=== PATIENT | female | born 1990 | race Caucasian/White ===

== ENCOUNTER 2023-08-15 15:20 | Outpatient (RCR) | payer OTHER, SELFPAY ==
--- NOTE | 2023-08-15 16:34 | PTOPEVAL1 ---
Assessment and note entered by Miguel Giron, PT, DPT Evaluation Information Assessment Status Evaluation Diagnosis R feldman splints Subjective Information Pt states about 2 years ago she was doing a lot of running and walking daily. She states she was getting a lot of R feldman pain to where it causes her to stop running as much. She sticks to more walking and yoga now, her pain is intermittent and not as intense. She states she would like to start running again. Reported Pain Level Pain Score 0: Self Report Assessment PT Clinical Summary Shonna presents to therapy today for her initial evaluation with a diagnosis of R feldman splints. Today she demonstrates limitations in active and passive dorsiflexion ROM marietta with increased tissue density with palpation. Her hip and knee ROM and strength were both WNL. She was issued an HEP and given running education. She plans to follow up in 6 weeks. Plan of Care Interventions Gait Training,Manual Therapy,Neuro Re-education, Patient/Caregiver Educati,Therapeutic Activities, Therapeutic Exercise PT Services Indicated Yes Treatment Frequency and follow up in 6 weeks Duration These treatments will address the objective and functional deficits as defined above. The patient will be advanced safely and appropriately in order for the patient to progress towards his/her prior level of function. Additional exercises will be introduced and as well as a comprehensive home exercise program upon discharge, if needed, ?to ensure carryover of functional gains achieved in the clinic. This treatment plan has been reviewed and agreement upon by the patient.
--- NOTE | 2023-11-11 15:23 | PTOPDC ---
Assessment and note entered by Deon Wharton, PT Evaluation Information Assessment Status Discharge - Pt Not Present Diagnosis R feldman splints Subjective Information Spoke with patient last week regarding therapy attendance. Stated that she would like to wait until 11/04/23 before deciding if she wanted to continue. Patient did not contact clinic at this time. Assessment PT Clinical Summary Patient to be discharged at this time due to lack of communication with clinic. Came for initial evaluation on 08/15/23 and has not returned or scheduled to return. Will be discharged at this time. Plan of Care PT Services Indicated Discharge due to lack of patient communication.
== END 2023-11-11 15:38 | disposition home or self-care (01) ==
LOC: ANHGOSHPT 15:20
PROVIDERS: PCP Family Medicine; Visit Provider Family Medicine
DX: S86.899D Other injury of other muscle(s) and tendon(s) at lower leg level, unspecified leg, subsequent encounter (principal)
CPT/HCPCS: 97110; 97161

== ENCOUNTER 2024-04-12 16:13 | Outpatient (RCR) | payer OTHER, SELFPAY ==
[2024-04-10 17:15] LABS: Beta HCG Quantitative 125.14 mIU/ML
[2024-04-12 17:47] LABS: Beta HCG Quantitative 329.74 mIU/ML
== END 2024-07-09 23:59 | disposition home or self-care (01) ==
LOC: ANHLAB 16:13
PROVIDERS: PCP Family Medicine; Visit Provider Obstetrics & Gynecology
DX: O36.0130 Maternal care for anti-D [Rh] antibodies, third trimester, not applicable or unspecified (principal); O20.0 Threatened abortion; Z3A.00 Weeks of gestation of pregnancy not specified
CPT/HCPCS: 36415; 84702; 85461; 86850; 86900; 86901

== ENCOUNTER 2024-12-18 07:51 | Inpatient (IN) | payer OTHER, SELFPAY ==
[2024-12-18] VITALS (18 sets, daily range): BP systolic 75–158; BP diastolic 58–90; PULSE 67–130; RESP 16–20; TEMP 36.2–37; O2SAT 97–99; BMI 26.3
--- OUTSIDE RECORDS SUMMARY | 2024-12-18 08:13 | XMS_ITS | Data Portability ---
Author Organization [facility] Address [address] [place] [address] Care Team Providers Care Project Technician Name Role Phone ARSLAN GRIFFITH Primary Care Provider Assessment Encounter Date Assessment Date Assessment LastModified by Organization Details LastModified Time 05/17/2024 05/17/2024 Patient is ___weeks . Discussed plan. Not available 05/17/2024 12:50:43 Plan of Treatment Reminders Order Date Submit Date Provider Last Modified By Organization Details Last Modified Time Details Appointments None recorded. Lab None recorded. Referral None recorded. Procedures None recorded. Surgeries None recorded. Imaging US, obstetric, transvagina l 2023 024 [address], [address], [place], [address], 20:16:33 US, obstetric, transvagina l 2023 0[address], [address], [place], [address], 21:15:15 Medication Orders progesteron e micronized 200 mg capsule 2023 024 IR[facility], [facility] [place], [address], 12:56:49 Patient TargetsNo targets recorded. Patient InstructionsNo instructions recorded. Reason for Referral None Reported. Results Created Date Observation Date Name Description Value Unit Range Abnormal Flag Note LastModifiedBy Organization Detail LastModifiedTime 03/15/20 24 03/15/2024 DHEA SULFA TE DHEA-sulfate 250 ug/dL Femal e Range s Age(y ) Range (ug/d L) 10-15 34-28 0 15-20 65-36 8 20-25 148-4 07 25-35 99-34 0 35-45 61-33 7 45-55 35-25 6 55-65 19-20 5 65-75 9-246 > 75 12-15 4 Not Available [facility] (Lab) [address] [facility], [place], [address], 03/21/2024 14:48:33 03/15/20 24 03/15/2024 PROGE STERO NE progesterone 0.31 NG/mL This assay was perfo rmed using [employer] ratio n reage nts and test kits. Value s obtai deniz with other assay metho ds or kits canno t be used inter simms eay . Femal e Proge stero ne Range s: Folli cular phase 0.06- 0.89 ng/mL Ovula tion phase 0.12- 12.00 ng/mL Lutea l phase 1.83- 23.90 ng/mL Postm enopa usal <0.05 -0.13 ng/mL Healt hy Pregn ant Women 1st Trime ster 11.0- 44.30 2nd Trime ster 25.40 -83.3 0 3rd Trime ster 58.70 -214. 00 Not Available [facility] (Lab) [address] [facility], [place], [address], 03/21/2024 14:48:34 03/15/20 24 03/15/2024 PROLA CTIN prolactin, total 6.90 NG/mL 4.79-2 3.30 This assay was perfo rmed using [employer] reage nts and test kits. Value s obtai deniz with other assay metho ds or kits canno t be used inter simms eay . Not Available [facility] (Lab) [address] [facility], [place], [address], 03/21/2024 14:48:34 03/15/20 24 03/15/2024 FSH, LH, ESTRA DIOL estradiol 46.3 pg/mL This assay was perfo rmed using [employer] reage nts and test kits. Value s obtai deniz with other assay metho ds or kits canno t be used [facility] . Femal e Estra diol Range s: Folli cular phase 12.4- 233 pg/mL Ovula tion phase 41.0- 398 pg/mL Lutea l phase 22.3- 341 pg/mL Postm enopa usal <5-13 8 pg/mL Healt hy Pregn ant Women 1st Trime ster 154-3 243 pg/mL 2nd Trime ster 1561- 26593 pg/mL 3rd Trime ster 8525- >3000 0 pg/mL Not Available [facility] (Lab) [address] [facility], [place], [address], 03/21/2024 14:48:34 03/15/20 24 03/15/2024 FSH, LH, ESTRA DIOL FSH 5.9 mIU/m L This assay was perfo rmed using [employer] reage nts and test kits. Value s obtai deniz with other assay metho ds or kits canno t be used inter [facility] . Femal es Folli cular : 3.5-1 2.5 mIU/m L Ovula tion: 4.7-2 1.5 mIU/m L Lutea l: 1.7-7 .7 mIU/m L Postm enopa use: 25.8- 134.8 mIU/m L Not Available [facility] (Lab) [address] [facility], [place], [address], 03/21/2024 14:48:34 03/15/20 24 03/15/2024 FSH, LH, ESTRA DIOL LH 9.8 mIU/m L This assay was perfo rmed using [employer] reage nts and test kits. Value s obtai deniz with other assay metho ds or kits canno t be used inter [facility] . Femal es Mid-F ollic ular: 2.4-1 2.6 mIU/m L Mid-C ycle: 14.0- 95.6 mIU/m L Mid-L uteal : 1.0-1 1.4 mIU/m L Postm enopa use: 7.7-5 8.5 mIU/m L Not Available [facility] (Lab) [address] [facility], [place], [address], 03/21/2024 14:48:34 03/15/20 24 03/15/2024 TSH, REFLE X FREE T4 TSH 1.63 uIU/m L 0.30-5 .33 Not Available [facility] (Lab) [address] [facility], [place], [address], 03/21/2024 14:48:34 03/15/20 24 03/15/2024 HUMAN SEX HORMO NE MARII NG GLOBU JACKLYN sex hormone binding globulin 56.1 nmole s/L 18.2-1 35.5 Not Available [facility] (Lab) [address] [facility], [place], [address], 03/21/2024 14:48:35 03/15/20 24 03/15/2024 TESTO STERO NE, FREE( DIALY SIS) AND TOTAL (LC/M S/MS) testosterone , total 25 NG/dL 2-45 For addit ional infor elba rodríguez e refer to http: //[facility] soto.que stdia gnost ics.c om/fa q/ Total Testo stero neLCM SMSFA Q165 (This link is being provi ded for infor peter nal/ educa corrina l purpo ses only. ) This test was devel opnadia and its samantha tical perfo rmanc e jono cteri stics have been deter mined by [facility] DARION [facility]. It has not been clear ed or appro gi by the U.S. Food and Drug Admin istra tion. This assay has been valid ated pursu ant to the CLIA regul ation s and is used for clini sin purpo ses. Not Available [facility] (Lab) [address] [facility], [place], [address], 03/21/2024 14:48:35 03/15/20 24 03/15/2024 TESTO STERO NE, FREE( DIALY SIS) AND TOTAL (LC/M S/MS) testosterone , free 2.7 pg/mL 0.1-6. 4 This test was devel oped and its samantha tical perfo rmanc e jono cteri stics have been deter mined by [facility] [place]. It has not been clear ed or appro gi by the U.S. Food and Drug Admin istra tion. This assay has been valid ated pursu ant to the CLIA regul ation s and is used for clini sin purpo ses. Perfo rming Organ izati on Infor matgordo n: Site ID: AMD Name: [facility] Addre ss: [id number] [facility] [employer] [place], [place] Direc tor: Armand Zapata MD PhD Not Available [facility] (Lab) [address] [facility], [place], [address], 03/21/2024 14:48:35 03/15/20 24 03/15/2024 IMAGE GUIDE D PAP AND HPV REGAR DLESS image guided Pap, HPV regardless of Pap result SEE RESULT S BELOW CASE REPOR T: Cytol ogy Gynec ologi sin Repor t Case: [id number] Autho dionna g Provi demetrius: Jeevan Koenig MD Colle cted: 03/15 1710 Order ing Locat ion: [place] Patho log[facility] Recei gi: 03/16 0924 First Scree n: Nojayjay ayon, Yomi ed, CT Rescr een: Praveena Padilla ret, CT Speci men: Scree bria Pap - Image d, Cervi x STATE MENT OF ADEQU ACY: Satis facto ry for evalu ation Trans forma tion zone compo nent prese nt ----- ----- ----- ----- ----- ----- ----- ----- ----- ----- ----- ----- ----- ----- ----- ----- ----- ---- FINAL DIAGN OSIS: Negat emir for Intra epith elial Lesgordo soto or Paramjit cummins (NIL) . Elect carrie barraza d by Praveena Padilla ret, CT on 03/22 at 3:42 PM ----- ----- ----- ----- ----- ----- ----- ----- ----- ----- ----- ----- ----- ----- ----- ----- ----- ---- HPV RESUL TS: HPV mRNA E6/E7 : No HPV mRNA Detec sean NOTE: This high risk HPV mRNA assay detec ts fourt een high- risk HPV types (16, 18, 31, 33, 35, 39, 45, 51, 52, 56, 58, 59, 66, 68) witho ut diffe renti ation . COMME NT: This speci men was revie wed by a Cytot echno logis t and/o r Patho logis t (as indic ated in this repor t) after evalu ation using the Thinp rep Imagi ng Syste m. CLINI SIN INFOR MATIO N: Menst rual Statu s: LMP (if appli cable ): Clini sin Histo ry/Pr eviou s Pap: Type of Neopl luis m (if appli cable ): Signi xiao t Clini sin Findi ngs: Other Histo ry: Hormo jessica (if appli cable ): PAP EDUCA CORRINA L NOTE: The Pap Test is a scree bria test with an inher ent false negat emir rate. Liqui d-bas ed sampl ing may decre ase, but will not elimi surinder, false negat emir resul ts. A negat emir resul t does not precl ude the prese nce and/o r devel opmen t of disea se, since the prese nce of abnor mal cells in the sampl e depen ds on the locat ion of the lesio n and sampl ing techn ique. Sanjay nued regul ar scree bria is the best metho d of cance r preve ntion . If repor sean cytol ogic findi ng do not corre late with physi sin and/o r histo rical findi ngs, furth er inves tigat ion is recom kevin d, as clini yasmine warra nted. Not Available [facility] (Lab) [address], [place], [address], 03/22/2024 16:47:17 03/23/20 24 03/23/2024 US, pelvi s No observ ation record ed. [facility] [address], [place], [address], 03/23/2024 17:37:42 03/23/20 24 03/23/2024 US, trans vagin al No observ ation record ed. [facility] [address], [place], [address], 03/23/2024 17:37:53 03/23/20 24 03/23/2024 US, pelvi s No observ ation record ed. [email or web address] [address], [place], [address], 03/25/2024 20:08:35 04/20/20 24 04/20/2024 US, obste tric, trans vagin al No observ ation record ed. [facility] [address], [place], [address], 04/20/2024 17:03:23 04/20/20 24 04/20/2024 US, obste tric, trans vagin al No observ ation record ed. IRVIN [address], [place], [address], 05/07/2024 04:12:14 04/30/20 24 05/01/2024 US, obste tric, trans vagin al No observ ation record ed. [email or web address] [place] [address], [place], [address], 05/01/2024 13:01:53 04/30/20 24 04/30/2024 US, obste tric, follo w-up No observ ation record ed. [email or web address] [address], [place], [address], 05/03/2024 15:32:34 05/17/20 24 05/17/2024 US, obste tric, 1st trime ster No observ ation record ed. [email or web address] [address], [place], [address], 05/17/2024 20:27:45 Result Notes None recorded. Procedures Surgical History Date Name Laterality Status Provider Name and Address Organization Details Recorded Time 03/15/2024 Date of [facility] 04/05/2024 14:34:06 Imaging Results None recorded. Procedure Notes None recorded. Medical Equipment None Reported. Allergies No known drug allergies Medications Name Sig Start Date Stop Date Status Note LastModified by Organization Details LastModified Time progesterone micronized 200 mg capsule Take 1 capsule every day by oral route for 12 days. 05/17 completed Not Available Not Available Not Available active Not Available Not Avai lable Not Available Vitals Date Recorded Body height Body mass index (BMI) Body weight Systolic And Diastolic Provider Name and Address Organization Details Last Updated DateTime 04/05/2024 167.64 cm 22.4 kg/m2 67623.34 g 103/70 mm[Hg] Earline [facility] 04/05/2024 14:39:19 Date Recorded Body height Body mass index (BMI) Body weight Systolic And Diastolic Provider Name and Address Organization Details Last Updated DateTime 05/17/2024 167.64 cm 23.4 kg/m2 74585.89 g 104/66 mm[Hg] Earline Rodríguez [facility] 05/17/2024 12:55:58 Social History Question Answer Notes LastModified by [employer] Details LastModified Time Tobacco Smoking Status Never Smoker Earline Rodríguez null, [facility] 03/15/2024 17:30:18 In The 14 Days Before Symptom Onset, Have You Had Close Contact With A Laboratory-confirm ed COVID-19 While That Case Was Ill? No Information n ot available 03/15/2024 In The 14 Days Before Symptom Onset, Have You Had Close Contact With A Person Who Is Under Investigation For COVID-19 While That Person Was Ill? No Information not available 03/15/2024 Have You Been To An Area Known To Be High Risk For COVID-19? No Information not available 03/15/2024 Sex: Unknown Functional Status Question Answer Note LastModified by [employer] Details LastModified Time Do you use any illicit or recreational drugs? No Information not available 03/15/2024 What is your level of alcohol consumption? Occasional Information not available 03/15/2024 Mental Status None recorded. Family History Relationship Description Onset Age of this Age Resolved Age Notes LastModified by Organization Details LastModified Time Maternal Grandmother Malignant tumor of breast Not available 2023 17:29:14 Paternal Grandfather Diabetes mellitus Not available 2023 17:29:37 Paternal Grandfather Hypertensive disorder Not available 2023 17:29:52 Medical History Condition Response Allergies (Food, seasonal, environmental ) N Other N Blood Transfusion N Drug/Latex Allergies/Reactions N Breast Cancer N Dermatologic Disorders N Lung Disease N Defects or Inherited Disease N Breast Problem N Gestational Diabetes N Hematologic disorders N Anesthesia Complications N History of STI N Deep Vein Thrombosis N Polycystic ovary syndrome N Anxiety Disorder N Autoimmune disease N Arthritis N Infertility N Polyps N Acid Reflux (GERD) N History of abnormal pap N Cancer N Stroke N Varicosities N Neurologic/Epilepsy N Endometriosis N High Cholesterol N Headaches N Fibromyalgia N Kidney Disease N Heart Problems N Kidney or Bladder Problems N Thyroid Problems N GI Problems N Eating Disorder N Anemia N Art (IVF or FET) N Psychiatric Illness N Ovarian Cancer N Diabetes N Pulmonary (TB, Asthma) N Hepatitis/Liver Disease N No Past Medical History N Eczema N Urinary Tract Infection N Abuse/Domestic Violence N Asthma N Trauma/Violence N Depression/ depression N Heart Disease N Pre-Eclampsia N Hypertension N Osteoporosis N Thrombophilias N Gynecological History Statement/Question Response Flow Moderate Was last menstrual period normal N STIs/STDs N Duration of Flow (days) 5 Current Control Method Are cycles usually normal Y Sexually Active? Y Menses Monthly N Age of first menstrual cycle 15 Date of Last Pap Smear 03/15/2024 Sexual Problems? N LMP Unknown Obstetrics History GPAL:G 1 P 0 0 0 1 Type Value Living 1 Total 1 Past Encounters Encounter ID Performer Location Encounter Start Date Encounter Closed Date Diagnosis/Indication Diagnosis SNOMED-CT Code Diagnosis ICD10 Code Diagnosis Note [id number] Chung Koenig MD [place] [address] [address] 03/15/2024 17:04:19 03/15/2024 17:55:44 Gynecologic examination 45015240 Z01.419 Annual gynecologi sin exam performed. Patient will come back in a year unless there are new symptoms. Suggest Calcium with Vitamin D if not eating in diet. Patient advised to get annual flu shot. Recommend yearly physicals and preform monthly breast exams. Genetic testing is available for patients with family history of cancer. Engage in safe sexual practices, use condoms. Encouraged to have daily exercise. Avoid tobacco and illicit drugs, moderation of alcohol. If BMI greater than 25 dietary consult advised. If you have any questions please call or email. Pap smear- today laboratory evaluation - done Amenorrhea [id number] N91. 2 [id number] Chung Koenig MD [place] [address] [address] 03/23/2024 16:29:21 03/26/2024 10:17:49 Amenorrhea 30857444 N91.2 [id number] Chung Koenig MD [place] [address] [address] 04/05/2024 14:27:15 04/08/2024 23:59:33 Amenorrhea [id number] N91.2 this patient is a 33-year-ol d female who presents for amenorrhea . She has had about 4 months of amenorrhea . We performed a laboratory evaluation . It appears to be normal. Her estrogen is somewhat low. Could this possibly be a hypothalam ic hypoestrog enism. ? FSH and LH are low/normal . we discussed the findings. Her testostero ne was normal. She has little stigmata of polycystic ovarian syndrome. The pelvic ultrasound is normal. We agreed to progestero ne withdrawal bleed to determine the adequacy of her estrogen. Patient is interested in . [facility] . We also discussed moving forward with inducing ovulation in our office. Ultimately agreed to to progestero ne withdrawal bleeds and to meet after that. Second 1 is likely more important. She does have little bit Mr. The endometriu m. She will likely have 1 initially. We will she have enough estrogen to have a 2nd progestero ne withdrawal bleed. ? I spent over 30 minutes on her care in total. [id number] Chung Koenig MD [place] [address] [address] 04/20/2024 13:24:25 04/20/2024 14:04:06 Threatened miscarriage [id number] O20.0 Z36.87 [id number] Chung Koenig MD [place] [address],[place] [address] 04/30/2024 13:54:28 04/30/2024 14:44:18 Uncertain viability of [id number] O36.80X0 O20.0 Z3A.01 [id number] Chung Koenig MD [place] [address],[place] [address] 05/17/2024 11:57:41 05/17/2024 12:17:37 [id number] Chung Koenig MD [place] [address],[place] [address] 05/17/2024 11:57:57 05/17/2024 13:28:14 Amenorrhea [id number] N91.2 this patient is a 33-year-ol d female who presents for amenorrhea . She is a positive test. Ultrasound revealed a 1st trimester gestation. Patient has no complaints . We talked about early care. Talked about genetic screening. We talked about her ultrasound results. We talked about the 12 week ultrasound that has genetic screening components . She was given recommenda tions on exercise, diet, over-the-c ounter medication s. We reviewed her obstetric history. We reviewed her medical history. We reviewed her social history. She will begin routine care at her next visit. Health Concerns Section Related Observation LastModified by Organization Detai ls LastModified Time None Recorded Concern Status LastModified by Organization Details LastModified Time None Recorded Advance Directives Directive None Recorded Payers Insurance Date Sequence Insurance Name Policy Number Policy Tristan Covered Member ID Tristan Member ID Guarantor Name 06/14/2024 1 [facility] [id number] [employer] [id number] [employer] Notes Date Note Type Note Provider Name and Address Organization Details Recorded Time 04/05/2024 text/html this patient is a 33-year-old female who presents for amenorrhea. She has had about 4 months of amenorrhea. We performed a laboratory evaluation. It appears to be normal. Her estrogen is somewhat low. Could this possibly be a hypothalamic hypoestrogenism. ? FSH and LH are low/normal. we discussed the findings. Her testosterone was normal. She has little stigmata of polycystic ovarian syndrome. The pelvic ultrasound is normal. We agreed to progesterone withdrawal bleed to determine the adequacy of her estrogen. Patient is interested in . She may require referral to Reproductive Endocrinology for amenorrhea. We also discussed moving forward with inducing ovulation in our office. Ultimately agreed to to progesterone withdrawal bleeds and to meet after that. Second 1 is likely more important. She does have little bit Mr. The endometrium. She will likely have 1 initially. We will she have enough estrogen to have a 2nd progesterone withdrawal bleed. ? Chung Koenig MD [address], [place], [address], [facility] 04/07/2024 15:09:22 05/17/2024 text/html this patient is a 33-year-old female who presents for amenorrhea. She is a positive test. Ultrasound revealed a 1st trimester gestation. Patient has no complaints. We talked about early care. Talked about genetic screening. We talked about her ultrasound results. We talked about the 12 week ultrasound that has genetic screening components. She was given recommendations on exercise, diet, kipf-qoc-hufomgj medications. We reviewed her obstetric history. We reviewed her medical history. We reviewed her social history. She will begin routine care at her next visit. Chung Koenig MD [address], [place], [address], [facility] 05/17/2024 13:23:23 OBGyn Episode Ob Episode Information Episode Created Date Number of Fetuses Patient Bloodtype Patient rh Status Prepregnancy Weight lbs Domestic Partner Domestic Partner Phone Father Name Customer Account Executive Status 03/15/20 24 1 CLOSED Fetus Data First Name Last Name Admitted to NICU Weight (g) Sex Living Outcome Pediatric Complications Fetus ID Race Codes Race Delivery Type 3798.83 3 M Full Term [id number] Vaginal Delivery Marty Calculation Initial Marty Date Initial Exam Date Initial Exam Provider Initial Ultrasound Date Last Menstrual Period Date Ultra Sound Weeks Gestation 0 Eighteen To Twenty Week Marty Update Ultra Sound Date Fundal Height At Umbil Quickening Date Ultra Sound Latest Weeks Gestation Final Marty Confirmed By Final Marty Confirmed Date Final Marty Date Ultra Sound Latest Days Gestation 0 0 Menstrual History Last Menstrual Date Menses Monthly On Bcp Conception Prior Menses Frequency Hcg Plus Date Menarche Onset Age Delivery Information Delivery Date Delivery Type Labor Anesthesia Weeks Gestation Incision Type Labor Labor Length Hrs Delivered By Post Complications Tubal Sterilization Discharge Date Comments 9 41 Discharge Information Feeding Method Contraceptive Method Maternal HG B and HCT Levels
--- OUTSIDE RECORDS SUMMARY | 2024-12-18 08:13 | XMS_ITS | Clinical Summary ---
Author Organization [facility] Address [address] [place] [address] Care Team Providers Care Pit Boss Name Role Phone Sunitha Cleaning MD Primary Care Provider [phone] Allergies No known active allergies Medications vitamin 27-1 MG Tab tabletIndicatio ns: Take 1 tablet by mouth daily. Active benzocaine-ment hol 20-0.5 % Aerosol Apply 1 spray topically 4 (four) times daily as needed (Perineal discomfort). 1 each 9 Active docusate sodium 100 MG capsule Take 1 capsule (100 mg total) by mouth 2 (two) times daily as needed for Constipation. 10 capsule 9 Active Active Problems Problem Noted Date Diagnosed Date Normal course ([facility] 12/20/2018 Post-dates ([facility]) 12/17/2018 Family History Medical History Relation Comments Cancer Maternal Grandfather skin Cancer Maternal Grandmother breast Glaucoma Maternal Grandmother Diabetes Paternal Grandfather Relation Status Comments Brother Alive Father Alive Maternal Grandfather Alive Maternal Grandmother Alive Mother Alive Paternal Grandfather Alive Paternal Grandmother Alive Sister Alive Social History Tobacco Use Types Packs/Day Years Used Date Smoking Tobacco: Never Smokeless Tobacco: Never Alcohol Use Standard Drinks/Week Comments No 0 (1 standard drink = 0.6 oz pur e alcohol) AUDIT-C Answer Date Recorded Frequency of Alcohol Consumption Never 12/17/2018 Average Number of Drinks Not on file 019 Frequency of Binge Drinking Not on file 11/28 Comments No Sex and Gender Information Value Date Recorded Sex Assigned at Female 12/17/2018 10:40 PM CDT Legal Sex Female 9:27 PM CDT Gender Identity Female 12/17/2018 10:40 PM CDT Sexual Orientation Straight 12/17/2018 10 :40 PM CDT Last Filed Vital Signs Vital Sign Reading Time Taken Comments Blood Pressure 112/60 12/20/2018 7:45 AM CDT Pulse 59 12/20/2018 7:45 AM CDT Temperature 36.7 C (98 F) 12/20/2018 7:45 AM CDT Respiratory Rate 16 12/20/2018 7:45 AM CDT Oxygen Saturation 100% 12/20/2018 7:45 AM CDT Inhaled Oxygen Concentration - - Weight 78 kg (172 lb) 12/17/2018 10:47 PM CDT Height 167.6 cm (5' 6) 12/17/2018 10:47 PM CDT Body Mass Index 27.76 12/17/2018 10:47 PM CDT Plan of Treatment Health Maintenance Due Date Last Done Comments Cervical Cancer Screening Pa p Smear (Age 30 to 64) Every 3 Years 1989 Annual Physical 1992 Hepatitis C 09/13/2007 DTaP, Tdap and Td Vaccines ( 1 - Tdap) 2008 Hepatitis B Vaccines (1 of 3 - 19+ 3-dose series) 2008 HPV Vaccines (1 - 3-dose SCD M series) 2016 Cervical Cancer Screening Pa p with HPV Testing (Age 30 to 64) Every 5 Years 09/13/2019 Cervical Cancer Screening with HPV 09/13/2019 COVID-19 Vaccine (2023-2 5 season) 2024 Meningococcal B Vaccine Aged Out No l onger eligible based on patient's age to complete this topic Meningococcal Vaccine Aged Out No eddie bret eligible based on patient's age to complete this topic Pneumococcal Vaccine: Pediat rics (0 to 5 Years) and At-Risk Patients (6 to 49 Years) Aged Out No longer eligible b ased on patient's age to complete this topic RSV Immunizations Under 20 Months Aged Out No longer eligible based on patient's age to complete this topic Insurance Advance Directives * Full Code (Latest Code Status on File) Date Activated Date Inactivated Comments 12/17/2018 9:38 PM 12/18/2018 8:14 PM Care Teams Pit Boss Relationship Specialty Start Date End Date Sunitha Cleaning MD PCP - General FAMILY PRACTICE 11/20/18
--- OUTSIDE RECORDS SUMMARY | 2024-12-18 08:13 | XMS_ITS | Clinical Summary ---
Author Organization [facility] Address [address] [place] [address] Care Team Providers Care Industrial Rehabilitation Consultant Name Role Phone Unavailable Primary Care Provider Unavailabl e Source Comments [facility],non-owned Affiliates and Associated Physician Practices is amultiple site organization consisting of ambulatory clinics and hospital sitesin [place], [place]. This disclosure is being madepursuant to the Care Everywhere program and may not contain all information available regarding this patient. Last updated 18.[facility] [employer] Allergies No known active allergies Immunizations Immunization Administration Dates Next Due TDAP (7yrs+) 11/21/2018 Social History Tobacco Use Types Packs/Day Years Used Date Smoking Tobacco: Never Assessed Comments Unknown Sex and Gender Information Value Date Recorded Sex Assigned at Not on file Legal Sex Female 10:04 AM CDT Gender Identity Not on file Sexual Orientation Not on file Plan of Treatment Health Maintenance Due Date Last Done Comments HIV SCREENING 2004 HEPATITIS C SCREENING 09/08/2007 HEPATITIS B VACCINE (1 of 3 - 19+ 3-dose series) 2008 HPV VACCINE (1 - 3-dose SCDM series) 2016 COVID-19 VACCINE ( - 2023-2 5 season) 2024 DEPRESSION SCREENING 05/30/2024 INFLUENZA VACCINE (#1) 2025 DTAP/TDAP/TD VACCINES (2 - T d or Tdap) 11/21/2028 11/21/2018 ZOSTER VACCINE (1 of 2) 09/13/2039 HIB VACCINE Aged Out No longer eligi ble based on patient's age to complete this topic MENINGOCOCCAL (Group B) VACC INE SHARED DECISION-MAKING Aged Out No longer eligibl e based on patient's age to complete this topic MENINGOCOCCAL GROUPS A/C/Y/W VACCINE Aged Out No longer eligible b ased on patient's age to complete this topic PNEUMOCOCCAL VACCINE Aged Out No long er eligible based on patient's age to complete this topic Insurance [facility]
[2024-12-18] MEDS: OXYTOCIN 30 UNITS/NS 500 ML 30 UNITS/500 ML BAG 999 UNITS IV CONT (08:19)
[2024-12-18 08:28] LABS: Hematocrit 42.1 % (37.0-47.0); Hemoglobin 14.7 g/dL (12.0-15.0); Immature Granulocyte Percent A 0.4 % (0-0.5); Lymphocytes Absolute Auto 2.41 K/mm3 (0.9-3.2); Mean Corpuscular HGB Conc 34.9 g/dl (32-36); Mean Corpuscular Hemoglobin 31.7 pg (26-34); Mean Corpuscular Volume 90.9 fl (80-100); Nucleated Red Blood Cells Absolute Auto 0.000 K/mm3 (0.0-0.012); Nucleated Red Blood Cells Perc 0.0 % (0.0-0.2); Platelet Count Result 227 k/mm3 (150-375); Red Blood Count 4.63 M/mm3 (4.2-5.4); White Blood Count 9.3 K/mm3 (4.5-10.0)
--- NOTE | 2024-12-18 08:43 | WPDHPUPDATE1 ---
History and Physical Update Update Date/Time: 12/18/24 08:43 34 yo who presents at 39w4d in labor. Pt reported regular contractions since 0400. She was found to be completely dilated on arrival to L&D. History and Physical has been reviewed, including an updated exam of the patient. There are NO changes in the patient's condition. Risks, benefits, and alternatives have been discussed and questions answered. Patient agrees to proceed with procedure. 34 yo at 39w4d who presents in labor GBS +, no antibiotics were administered RH+ denies any medical issues in this
--- NOTE | 2024-12-18 08:44 | P.PCNOB_ITS ---
OB - Vaginal Delivery Note Procedure Delivery date: 12/18/24 Induction method: None Delivery monitor: None Route of delivery: Episiotomy description: None Laceration Description: Perineal - 2nd Degree Delivery repair: vicryl Specimen: No Quantitative Blood Loss (ml): 100 Anesthesia type: None Disposition: Floor Complications: No immediate complications Narrative: Upon entering the room the patient was noted to be . The fetus was delivered atraumatically with one push and placed on the maternal abdomen. The cord was clamped and cut after 1 minute of life. The cord was double clamped and cut and a segment of cord was collected for cord gases. Cord blood was collected for blood type and Coomb's testing. The placenta delivered spontaneously and was noted to be intact. The perineum was inspected and a second degree perineal laceration was noted. The laceration was repaired with 2-0 vicryl in a running fashion. The uterus was firm and good hemostasis was noted. [place] Baby Date of : 12/18/24 Time of : 08:13 Gestational Age by Date: 39 gender: Male Weight (pounds): 7 Weight (ounces): 7 presentation: vertex position: Right Occiput Anterior Placenta delivery description: Spontaneous Cord Vessel Description: 3 Vessels score one minute: 9 score five minutes: 9
[2024-12-18] MEDS: OXYTOCIN 30 UNITS/NS 500 ML 30 UNITS/500 ML BAG 125 UNITS IV CONT (08:55)
[2024-12-18 09:15] LABS: Syphilis IgG/IgM Antibody Non-Reactive (Nonreactive)
[2024-12-18] MEDS: IBUPROFEN 600 MG TABLET PO ×3 (09:20→21:30)
[2024-12-18] MEDS: ACETAMINOPHEN 325 MG TABLET 650 MG PO ×3 (09:20→21:30)
--- NOTE | 2024-12-18 09:23 | LDADM ---
This patient, Shonna Parsons, was admitted to Labor/Delivery/Recovery 104 on 12/18/24 at 07:51. Plans for labor, pain management and were discussed with patient. Patient/family oriented to hospital policies and general routines including ID bracelet, bed and alarms, visiting hours, pain management, procedures, bathroom and other care routines, personal items, smoking policy, room service/diet and guest tray routines, infant security routines, and visiting hours. Patient/Family are encouraged to report perceived risks to care and to ask questions if they do not understand what they are told or what they should do. See OBIX for further documentation.
[2024-12-18] MEDS: BENZOCAINE 20% AER SPR (*SP) 56 GM CAN 1 SPRAY TOPICAL (11:19)
[2024-12-18] MEDS: WITCH HAZEL 40 PADS 1 PAD TOPICAL (11:19)
[2024-12-18] MEDS: MULTIVIT/MIN/PREN/FOL AC/IRON TABLET 1 TAB PO (11:20)
--- NOTE | 2024-12-18 13:19 | PC.NURSE ---
patient stated she received her tdap vaccine last Tuesday12/11/24
[2024-12-19 03:52] VITALS: BP 92/57; PULSE 64; RESP 16; TEMP 36.4; O2SAT 99
[2024-12-19] MEDS: ACETAMINOPHEN 325 MG TABLET 650 MG PO (03:52)
[2024-12-19] MEDS: IBUPROFEN 600 MG TABLET PO (03:52)
[2024-12-19 05:14] LABS: Hematocrit 36.4 % (37.0-47.0); Hemoglobin 12.1 g/dL (12.0-15.0)
[2024-12-19 07:40] VITALS: BP 110/62; PULSE 72; RESP 16; TEMP 37.1; O2SAT 96
[2024-12-19] MEDS: DOCUSATE SODIUM 100 MG CAPSULE PO ×2 (08:06→16:29)
--- NOTE | 2024-12-19 08:36 | P.PNOB_ITS ---
OB - PN: Subj Subjective Date/time seen: 12/19/24 08:36 Patient comments: pain well controlled, tolerating diet and other (Decreasing lochia.) baby status: doing well and nursing well [place] feeding status: exclusively bottle feeding OB - PN: Obj Data Labs 12/19/24 03:58 Labs: Laboratory Results - last 24 hr 12/18/24 12/19/24 08:20 03:58 Hgb 12.1 Hct 36.4 L Syphilis IgG/IgM Ab Non-reactive Blood Type O Positive Antibody Screen Negative OB - PN A/P Assessment and Plan (1) Vaginal delivery: Code(s): O80 - Encounter for full-term uncomplicated delivery Status: Acute Plan Doing well. Plan day: 1 Plan: routine care Comments: Patient doing well. Time Spent With Patient Time: Total time spent is greater than 50% in coordination of care (as documented) at patient's floor/unit and/or counseling patient: Exam 2 Psych: Affect: normal affect Other: Abd: fundus firm below umbilicus, nontender Perineum: healing Ext: nontender
--- NOTE | 2024-12-19 08:44 | P.DS_ITS ---
DS: Admitting Diagnosis Discharge Date 12/20/24 Admitting Diagnosis Active labor DS: Discharge Diagnosis Discharge Diagnosis (1) Vaginal delivery: Code(s): O80 - Encounter for full-term uncomplicated delivery Status: Acute OB - DS: Summary Hospital Course Hospital Course: patient was admitted and soon had a precipitous vaginal delivery. She did well. Baby did well. she did well. Had adequate pain control. she was discharged home on day 2. OB Procedures : Ultrasound OB Procedures Intrapartum: Spontaneous Vag Delivery OB Procedures: : None Peripartum Data Delivery Method: Natural Vaginal Laceration Description: Perineal - 2nd Degree Episiotomy description: None complications: none Status at Discharge Functional status at discharge: independent ambulation Time Spent with Patient Time attestation: Total time spent providing and/or coordinating discharge services: Exam Const: General: cooperative Orientation/consciousness: oriented to person, oriented to place and oriented to time HENMT: Face/Nose/Sinus: Normal external nose present Eyes: General: appearance normal, both eyes and all related structures Resp: Effort & Inspection: normal respiratory effort GI: Inspection: normal to inspection Skin: General skin exam: normal color Neuro: General: oriented to person, oriented to place and oriented to time Extrem: General: normal to inspection and no calf tenderness Psych: Appearance: grossly normal DS: Data Data Completed and Pending Labs on day of discharge: Labs from last 24 hours 12/19/24 12/18/24 03:58 08:20 Hgb 12.1 Hct 36.4 L Syphilis IgG/IgM Ab Non-reactive Blood Type O Positive Antibody Screen Negative Discharge Plan Discharge Attending physician on discharge: Sterling Patterson Consulting providers: Jonatan Jones Discharging Clinician: Sterling Patterson Anticipated Discharge Date/Time: 12/20/24 11:28 Patient Disposition: Home Activity: may shower, no straining and pelvic rest Diet: regular Discharge Instructions: Education: Mom and Baby Guide Given to: Mother Follow-Up: Call your delivering provider's office for an appointment to be seen in: Call [facility] for discharge [facility]. Appointment Date/Time: December 21, 2024 at 8:00 am What to expect at your follow-up visit: Blood Pressure Check Physical Assessment Call [phone] if you are unable to keep your appointment time. BREAST CARE: * Wear a snug supportive bra. * For engorgement discomfort: Breast Feeding: * Apply warm moist washcloths * Express milk as needed to relieve engorgement * Wear loose clothing Bottle Feeding: * May apply ice packs * For sore nipples: * Identify correct latch-on * Apply warm moist washcloths before and after nursing * Air dry nipples after nursing * May apply Lansinoh cream to nipples PERINEAL CARE: * Until bleeding stops, use your lauryn bottle after urinating * Change your pad frequently throughout the day * You may take sitz baths several times a day (fill your bathtub with warm water and soak for 20 minutes.) Do NOT bathe in the water * No tub baths until seen by your physician - You may shower ACTIVITY: * Rest as much as possible. * Do not exercise or lift anything heavier than your baby (such as laundry or other children.) * Avoid stairs or driving as much as possible. * Do not put anything into the vagina. No douching, tampons, or sexual activity until seen by physician. NOTIFY PHYSICIAN IF YOU HAVE ANY QUESTIONS OR IF ANY OF THE FOLLOWING SYMPTOMS OCCUR: * If your episiotomy or incision becomes red, swollen, or more painful than what you have experienced in the hospital. * If your vaginal bleeding becomes foul smelling. * If your vaginal bleeding becomes more heavy than a period or if your bleeding changes from pink to bright red. However, you may pass an occasional walnut- sized clot once or twice for the first week . * If you experience a sharp, shooting pain in you calves. * If you discover a hard, reddened area on your breast or if you experience flu- like symptoms. DIET: * Eat regular, well-balanced meals. * Drink plenty of fluids daily. If , drink to thirst. Patient Instructions: Antibiotic Form Patient Language: [place] Stand Alone Forms: General Discharge Information Follow-up/Referrals: Helio Saldivar MD [Physician] - Call for Appointment Discharge Medications: Continued PNV no.95-ferrous fumarate-FA [] 28 mg iron- 800 mcg tablet 1 tablet PO DAILY Date of admission: 12/18/24 07:51 Primary Care Provider: Polo Cleaning Admitting Provider: Jonatan Jones Attending physician on admission: Jonatan Jones Condition: Stable
[2024-12-19 19:18] VITALS: BP 106/69; PULSE 69; RESP 16; TEMP 36.6; O2SAT 99
[2024-12-20] MEDS: DOCUSATE SODIUM 100 MG CAPSULE PO (07:47)
[2024-12-20 07:50] VITALS: BP 112/73; PULSE 70; RESP 16; TEMP 37.1; O2SAT 98
--- NOTE | 2024-12-20 09:28 | P.PNOB_ITS ---
OB - PN: Subj Subjective Date/time seen: 12/20/24 09:28 Patient comments: pain well controlled, tolerating diet and other (Decreasing lochia.) baby status: doing well and nursing well OB - PN: Obj Data Labs 12/19/24 03:58 OB - PN A/P Plan day: 2 Plan: discharge home and other Comments: Patient doing well. Follow up 4-6 weeks. Discharge instructions provided. Time Spent With Patient Time: Total time spent is greater than 50% in coordination of care (as documented) at patient's floor/unit and/or counseling patient: Time with patient: less than 15 minutes Review of Systems 2 Review of Systems: All systems reviewed & are unremarkable except as noted in HPI and below Constitutional: Constitutional: Reports no additional constitutional complaints Cardiovascular: Cardiovascular: Denies dyspnea Respiratory: Respiratory: Denies dyspnea Gastrointestinal: Gastrointestinal: Reports no additional gastrointestinal complaints and Denies abdominal pain Genitourinary: Genitourinary: Reports no additional female genitourinary complaints Exam 2 Psych: Affect: normal affect Other: Abd: fundus firm below umbilicus, nontender Perineum: healing Ext: nontender
[2024-12-21 08:42] VITALS: BP 102/75; PULSE 76; RESP 18; TEMP 36.8; O2SAT 100
== END 2024-12-20 12:36 | disposition home or self-care (01) | DRG 807 ==
LOC: ANHLDR 08:41 → ANHOB2 12-19 08:46 → ANHLDR 12-21 08:28
PROVIDERS: Admitting Provider Student in an Organized Health Care Education/Training Program; PCP Family Medicine; Visit Provider Student in an Organized Health Care Education/Training Program
DX: O99.824 Streptococcus B carrier state complicating childbirth (principal); Z37.0 Single live birth; Z3A.39 39 weeks gestation of pregnancy; O70.1 Second degree perineal laceration during delivery
CPT/HCPCS: 36415; 85014; 85018; 85025; 86593; 86850; 86900; 86901; A9270; J2590